=== PATIENT | male | born 1950 | race Caucasian/White ===

== ENCOUNTER 2017-02-06 14:33 | Emergency (ER) | payer MEDICARE, OTHER ==
[~2017-02-06] VITALS: Ht 152.4 cm; Wt 74.0 kg
[2017-02-06 14:36] VITALS: Ht 152.4 cm; Wt 74.0 kg
[2017-02-06] MEDS ORDERED: MIRT15TA PO (15:46)
[2017-02-06] MEDS ORDERED: LITH300T5 PO (15:46)
--- NOTE | 2017-02-07 00:23 | ERD ---
ER Documentation Chief Complaint Date/Time DATE: 02/07/17 TIME: 00:22 Chief Complaint MEDICATION REFILL HPI 66-year-old man with a history of bipolar disorder states his symptoms are returning because he has been out of his medications for a couple weeks. He denies suicidal homicidal ideation wants a prescription refill for lithium and mirtazapine. He denies fevers or chills, no chest pain or shortness of breath, no vomiting or diarrhea, no weight loss. He states he does have follow-up with his psychiatrist in about 1-2 weeks. ROS All systems reviewed and are negative except as per history of present illness. Medications Home Meds Active Scripts Mirtazapine* (Remeron*) 15 Mg Tablet, 15 MG PO HS, #15 TAB Prov:JOSE LARES MD 02/06/17 [place] Carbonate* ([place] Carbonate*) 300 Mg Tablet, 300 MG PO BID, #30 TAB Prov:JOSE LARES MD 02/06/17 PMhx/Soc Bipolar disorder Medical and Surgical Hx: pt denies Surgical Hx Hx Psychiatric Problems: Yes (BIPOLAR) Hx Alcohol Use: No Hx Substance Use: Yes (MARIJUANA 3-4/YEAR SOCIALLY) Hx Tobacco Use: Yes (3/4 PACK/DAY) Smoking Status: Current every day smoker FmHx Family History: No diabetes Physical Exam Vitals Vital Signs Date Time Temp Pulse Resp B/P Pulse Ox O2 Delivery O2 Flow Rate FiO2 02/06/17 14:36 98.0 78 18 111/55 99 Physical Exam GENERAL: Well-developed, well-nourished, well-hydrated, in no apparent distress , looks nontoxic in appearance HEENT: Moist mucous membranes, pink conjunctiva, no cervical spine tenderness or step-off deformities, no goiter, no jaundice or icterus, extraocular movements intact without pain. No submandibular induration, and no pharyngeal erythema NEURO: Alert and oriented 3, cranial nerves II through XII intact bilaterally, pupils equal round reactive to light, no focal deficits or facial asymmetry, sensation intact distally Strength 5/5 in upper and lower extremities bilaterally CARDIAC: Regular rate and rhythm, no murmurs rubs or gallops LUNGS: Clear bilaterally no wheezing crackles or stridor ABDOMEN: Soft nontender, no guarding, no rigidity, no rebound, no psoas sign no obturator sign. Normoactive bowel sounds SKIN: Warm and dry to touch, no abrasions, contusions, or hematomas, no lacerations, no ecchymosis, no target lesions, and without ulcers EXTREMITIES: No clubbing cyanosis or edema, calves are bilaterally symmetrical, no Homans sign, no popliteal cord sign. Distal pulses equal and bilateral PSYCH: Normal affect without agitation or irritability Procedures/MDM I agreed to refill his medications and told him to follow-up with his primary care physician and psychiatrist for reevaluation. Differential diagnoses considered, included but not limited to acute coronary syndrome, pulmonary embolism, aortic dissection, abdominal aortic aneurysm, sepsis, stroke, meningitis, encephalitis, pneumonia, appendicitis, cholecystitis , bowel obstruction, pyelonephritis, nephrolithiasis, cystitis, as well as metabolic, hematologic, and electrolyte abnormalities. As well as abscess, cellulitis, fractures, and dislocations. Patient feels much better at this time, and vital signs are normal, symptoms have improved. I did give strict instructions to return to the ED if symptoms continue or worsen, patient will otherwise follow-up with primary care physician. Patient understood instructions and agreed to plan. Departure Diagnosis: Primary Impression: Bipolar 1 disorder Additional Impression: Encounter for medication refill Condition: Good Patient Instructions: Bipolar Disorder JOSE LARES MD February 07, 2017 00:23
== END 2017-02-06 16:10 | disposition home or self-care (01) ==
LOC: FTE 14:33
DX: F31.9 Bipolar disorder, unspecified (principal); F17.210 Nicotine dependence, cigarettes, uncomplicated
CPT/HCPCS: 99281